=== PATIENT | female | born 1985 | race Two or more races ===

== ENCOUNTER 2024-01-29 21:58 | Emergency (ER) | payer MEDICAID ==
[~2024-01-29] VITALS: Ht 170.2 cm; Wt 72.7 kg
[2024-01-29 22:23] VITALS: TEMP 98.4
[2024-01-29 22:31] VITALS: BP 145/88; PULSE 88; RESP 20
[2024-01-29 22:31] LABS: EOSINOPHILS % (AUTO) 3.1 % (1.0-6.0); HEMATOCRIT 42.2 % (36-46); HEMOGLOBIN 13.9 g/dL (12.0-16.0); LYMPHOCYTES # (AUTO) 3.2 K/uL (1.0-4.8); MEAN CORPUSCULAR HEMOGLOBIN 27.9 pg (26.0-34.0); MEAN CORPUSCULAR HGB CONC 32.9 G/dL (31.0-37.0); MEAN CORPUSCULAR VOLUME 85 fL (80-100); MONOCYTES # (AUTO) 0.7 K/uL (0.1-1.0); MONOCYTES % (AUTO) 7.6 % (2.0-9.0); NEUTROPHILS # (AUTO) 4.6 K/uL (1.8-7.7); NEUTROPHILS % (AUTO) 52.3 % (40.0-70.0); PLATELET COUNT (AUTO) 313 K/uL (150-450); RED BLOOD CELL COUNT(AUTO) 4.98 MIL/uL (4.00-5.20); RED CELL DISTRIBUTION WIDTH 12.5 % (11.5-14.5); WHITE BLOOD COUNT (AUTO) 8.8 K/uL (4.5-11.0)
[2024-01-29 22:38] LABS: AMPHET/METH SCREEN,URINE NEGATIVE (NEGATIVE); BARBITURATE SCREEN, URINE NEGATIVE (NEGATIVE); BENZODIAZEPINES SCREEN,URINE NEGATIVE (NEGATIVE); CANNABINOID SCREEN,URINE NEGATIVE (NEGATIVE); COCAINE SCREEN,URINE NEGATIVE (NEGATIVE); METHADONE SCREEN, URINE NEGATIVE (NEGATIVE); OPIATE SCREEN,URINE NEGATIVE (NEGATIVE); PHENCYCLIDINE SCREEN,URINE NEGATIVE (NEGATIVE)
[2024-01-29 22:39] LABS: ALCOHOL, URINE DRUG SCREEN NEGATIVE (NEGATIVE)
[2024-01-29 22:41] LABS: ANION GAP 7 mmol/L (8-16); CALCIUM, TOTAL 9.2 mg/dL (8.8-10.5); CARBON DIOXIDE 26 mmol/L (22-29); CHLORIDE 103 mmol/L (98-107); CREATININE 0.66 mg/dL (0.60-1.30); GLOMERULAR FILTR. RATE CALC > 60 mL/min (>60); GLUCOSE,RANDOM 107 mg/dL (70-110); POTASSIUM 3.9 mmol/L (3.5-5.1); SODIUM SERUM 136 mmol/L (136-145); UREA NITROGEN, BLOOD 11 mg/dL (7-18)
[2024-01-29 22:46] LABS: ALCOHOL, BLOOD (SERUM) < 3 mg/dL (0-10)
[2024-01-29 23:13] LABS: COVID AG,FIA SOURCE NASAL SWAB
[2024-01-29] MEDS ORDERED: ALPR-709 PO (23:14)
[2024-01-29] MEDS ORDERED: CEPH-558 PO (23:14)
[2024-01-29] MEDS ORDERED: HYDR-4808 PO (23:14)
[2024-01-29] MEDS ORDERED: FLUO-418 PO (23:14)
[2024-01-29 23:31] LABS: SARS-COV2 (COVID) ANTIGEN,FIA Negative (Negative)
== END 2024-01-29 23:20 | disposition home or self-care (01) ==
LOC: EMS 22:00
DX: R45.851 Suicidal ideations (principal); F41.9 Anxiety disorder, unspecified; F15.10 Other stimulant abuse, uncomplicated; Z79.899 Other long term (current) drug therapy; Z20.822 Contact with and (suspected) exposure to COVID-19
CPT/HCPCS: 99283; 87426; 80048; 85025; 36415; 80307; G0480

== ENCOUNTER 2024-05-26 10:23 | Inpatient (IN) | payer MEDICAID, OTHER ==
[~2024-05-26] VITALS: Ht 170.2 cm; Wt 67.6 kg
[2024-05-26 11:24] LABS: COVID AG,FIA SOURCE NPH
[2024-05-26 11:45] LABS: SARS-COV2 (COVID) ANTIGEN,FIA Negative (Negative)
[2024-05-26 11:58] LABS: ANION GAP 4 mmol/L (8-16); CALCIUM, TOTAL 8.6 mg/dL (8.8-10.5); CARBON DIOXIDE 25 mmol/L (22-29); CHLORIDE 105 mmol/L (98-107); CREATININE 0.88 mg/dL (0.60-1.30); EOSINOPHILS % (AUTO) 4.2 % (1.0-6.0); GLOMERULAR FILTR. RATE CALC > 60 mL/min (>60); GLUCOSE,RANDOM 159 mg/dL (70-110); HEMATOCRIT 36.3 % (36-46); HEMOGLOBIN 12.3 g/dL (12.0-16.0); LYMPHOCYTES % (AUTO) 30.1 % (22.0-44.0); MEAN CORPUSCULAR HEMOGLOBIN 28.2 pg (26.0-34.0); MEAN CORPUSCULAR HGB CONC 33.9 G/dL (31.0-37.0); MEAN CORPUSCULAR VOLUME 83 fL (80-100); MONOCYTES # (AUTO) 0.6 K/uL (0.1-1.0); MONOCYTES % (AUTO) 8.3 % (2.0-9.0); NEUTROPHILS # (AUTO) 3.8 K/uL (1.8-7.7); NEUTROPHILS % (AUTO) 56.4 % (40.0-70.0); PLATELET COUNT (AUTO) 331 K/uL (150-450); POTASSIUM 3.3 mmol/L (3.5-5.1); RED BLOOD CELL COUNT(AUTO) 4.36 MIL/uL (4.00-5.20); SODIUM SERUM 134 mmol/L (136-145); UREA NITROGEN, BLOOD 8 mg/dL (7-18); WHITE BLOOD COUNT (AUTO) 6.8 K/uL (4.5-11.0)
[2024-05-26 12:07] LABS: ALCOHOL, BLOOD (SERUM) < 3 mg/dL (0-10)
[2024-05-26] MEDS: POTASSIUM CHLORIDE 20 MEQ ER TABLET PO ONE (12:12)
[2024-05-26 12:20] LABS: HCG,QUANTITATIVE < 1 mIU/mL (0-6); THYROID STIMULATING HORMONE 1.81 uIU/mL (0.36-3.74)
[2024-05-26] MEDS: DOXYCYCLINE HYCLATE 100 MG TABLET PO ONE (13:13)
[2024-05-27 01:30] VITALS: BP 134/84; PULSE 88; RESP 18; TEMP 96.7; O2SAT 100
[2024-05-27 02:10] VITALS: BP 134/84; PULSE 88; RESP 18; TEMP 96.7; O2SAT 100
[2024-05-27] MEDS ORDERED: INFLUENZA VIRUS VACCINE TVS (6MO+) 2024-25/PF 45 MCG/0.5 ML SYRINGE IM. ONE (03:45)
[2024-05-27 08:14] VITALS: BP 120/84; PULSE 92; RESP 17; TEMP 97.1; O2SAT 100
[2024-05-27] MEDS: DOXYCYCLINE HYCLATE 100 MG TABLET PO SCH (08:52)
[2024-05-27] MEDS ORDERED: PETROLATUM,WHITE 28 GM JELLY TP PRN (10:30)
[2024-05-27] MEDS ORDERED: MAG HYDROX/ALUMINUM HYD/SIMETH ES 30 ML SUSPENSION UDCUP PO PRN (10:30)
[2024-05-27] MEDS ORDERED: NICOTINE 14 MG/24 HOUR PATCH TD PRN (10:30)
[2024-05-27] MEDS ORDERED: GuaiFENesin/D-METHORPHAN [SUGAR-FREE] 200-20MG/10 ML SYRUP UDCUP PO PRN (10:30)
[2024-05-27] MEDS ORDERED: ONDANSETRON 4 MG TABLET PO PRN (10:30)
[2024-05-27] MEDS ORDERED: CloNIDine HCL 0.1 MG TABLET PO PRN (10:30)
[2024-05-27] MEDS ORDERED: LOPERAMIDE HCL 2 MG CAPSULE PO PRN (10:30)
[2024-05-27] MEDS ORDERED: ALBUTEROL SULFATE HFA 90 MCG/PUFF 8 GM INHALER IH PRN (10:30)
[2024-05-27] MEDS ORDERED: MAGNESIUM HYDROXIDE SUSPENSION 30 ML UDCUP PO PRN (10:30)
[2024-05-27] MEDS ORDERED: DOCUSATE SODIUM 100 MG CAPSULE PO PRN (10:30)
[2024-05-27] MEDS: LURASIDONE HCL 40 MG TABLET PO SCH (11:13)
[2024-05-27] MEDS: LamoTRIgine 100 MG TABLET PO SCH (11:13)
[2024-05-27] MEDS: ATOMOXETINE HCL 40 MG CAPSULE PO SCH (16:55)
[2024-05-27 20:22] VITALS: BP 118/71; PULSE 83; RESP 16; TEMP 97.5
[2024-05-28 08:22] VITALS: BP 117/74; PULSE 82; RESP 16; TEMP 98; O2SAT 100
[2024-05-28 08:36] VITALS: BP 117/74; PULSE 80; RESP 16; TEMP 98
[2024-05-28 09:22] LABS: HEMOGLOBIN A1C 5.2 % (3.8-5.6)
[2024-05-28 09:27] LABS: CHOL/HDL RATIO 3.4 (3.9-5.7); THYROID STIMULATING HORMONE 0.81 uIU/mL (0.36-3.74)
[2024-05-28 09:30] VITALS: BP 117/74; PULSE 82; RESP 16; TEMP 98; O2SAT 100
[2024-05-28 09:34] LABS: POTASSIUM 3.9 mmol/L (3.5-5.1)
[2024-05-28 16:03] VITALS: BP 117/74; PULSE 82; RESP 17; TEMP 98; O2SAT 99
[2024-05-28 21:10] VITALS: BP 98/60; PULSE 88; RESP 16; TEMP 97.6
[2024-05-28 22:36] VITALS: BP 100/60; PULSE 88; RESP 16; TEMP 97; O2SAT 99
[2024-05-29 08:09] VITALS: BP 98/52; PULSE 83; RESP 18; TEMP 96.8
[2024-05-29 20:27] VITALS: BP 104/43; PULSE 94; RESP 15; TEMP 96.8; O2SAT 97
[2024-05-30 08:17] VITALS: BP 106/61; PULSE 96; RESP 16; TEMP 96.9; O2SAT 97
[2024-05-30 10:03] LABS: APPEARANCE,URINE HAZY (CLEAR); BILIRUBIN,URINE NEGATIVE (NEGATIVE); COLOR,URINE LIGHT YELLOW (YELLOW); GLUCOSE, URINE (UA) NEGATIVE (NEGATIVE); KETONES,URINE NEGATIVE (NEGATIVE); LEUKOCYTE ESTERASE ,URINE MODERATE (NEGATIVE); NITRATE,URINE NEGATIVE (NEGATIVE); OCCULT BLOOD,URINE NEGATIVE (NEGATIVE); PROTEIN,URINE TRACE mg/dL (NEGATIVE); SPECIFIC GRAVITIY, URINE 1.023 (1.003-1.030); UROBILINOGEN,URINE <=1.0 mg/dL (<=1.0)
[2024-05-30 10:10] LABS: ALCOHOL, URINE DRUG SCREEN NEGATIVE (NEGATIVE); AMPHET/METH SCREEN,URINE POSITIVE (NEGATIVE); BARBITURATE SCREEN, URINE NEGATIVE (NEGATIVE); BENZODIAZEPINES SCREEN,URINE NEGATIVE (NEGATIVE); CANNABINOID SCREEN,URINE NEGATIVE (NEGATIVE); COCAINE SCREEN,URINE NEGATIVE (NEGATIVE); METHADONE SCREEN, URINE NEGATIVE (NEGATIVE); OPIATE SCREEN,URINE NEGATIVE (NEGATIVE); PHENCYCLIDINE SCREEN,URINE NEGATIVE (NEGATIVE)
[2024-05-30 10:19] LABS: BACTERIA,URINE Many /HPF (None Seen); RBC,URINE 0-2 /HPF (0-2); SQUAMOUS EPITHELIAL CELL,UR Many /LPF (None Seen)
[2024-05-30] MEDS: LORazepam 2 MG TABLET PO PRN (16:44)
[2024-05-30] MEDS: HALOPERIDOL 5 MG TABLET PO PRN (16:44)
[2024-05-30 20:15] VITALS: BP 102/56; PULSE 88; RESP 16; TEMP 96.3; O2SAT 98
[2024-05-31 08:09] VITALS: BP 109/71; PULSE 84; RESP 16; TEMP 96.9; O2SAT 97
[2024-05-31 11:38] VITALS: RESP 17
[2024-05-31 12:38] VITALS: RESP 16
[2024-05-31 21:13] VITALS: BP 105/68; PULSE 83; RESP 17; TEMP 98.5; O2SAT 99
[2024-06-01 08:27] VITALS: BP 108/59; PULSE 89; RESP 18; TEMP 97.8; O2SAT 98
[2024-06-01 15:45] VITALS: RESP 18
[2024-06-01] MEDS: ACETAMINOPHEN 325 MG TABLET PO PRN (15:45)
[2024-06-01 16:45] VITALS: RESP 17
[2024-06-01 20:14] VITALS: BP 127/73; PULSE 98; RESP 17; TEMP 97.4; O2SAT 97
[2024-06-01] MEDS: ZOLPIDEM TARTRATE 10 MG TABLET PO PRN (22:05)
[2024-06-02 09:02] VITALS: BP 99/62; PULSE 78; RESP 18; TEMP 97.5; O2SAT 97
[2024-06-02 20:25] VITALS: BP 103/70; PULSE 82; RESP 18; TEMP 98.4
[2024-06-02] MEDS: IBUPROFEN 400 MG TABLET PO PRN (20:43)
[2024-06-03 06:10] VITALS: BP 110/73; PULSE 84; RESP 16; O2SAT 99
[2024-06-03 07:06] VITALS: RESP 18
[2024-06-03 08:30] VITALS: BP 107/61; PULSE 87; RESP 19; TEMP 98; O2SAT 98
[2024-06-03 15:04] VITALS: RESP 18; O2SAT 98
[2024-06-03 16:04] VITALS: RESP 18; O2SAT 98
[2024-06-03] MEDS ORDERED: CYCLOBENZAPRINE HCL 10 MG TABLET PO SCH (18:30)
== END 2024-06-03 18:45 | disposition left against medical advice (07) | DRG 750 ==
LOC: EMS 10:23 → B2S 05-27 01:06
PROVIDERS: ADMIT Psychiatry & Neurology Child & Adolescent Psychiatry; ATTEND Psychiatry & Neurology Child & Adolescent Psychiatry
PROC: GZHZZZZ Group Psychotherapy (ICD-10-PCS; principal; 2024-05-28)
PROC: GZ52ZZZ Individual Psychotherapy, Cognitive (ICD-10-PCS; 2024-05-28)
PROC: GZ56ZZZ Individual Psychotherapy, Supportive (ICD-10-PCS; 2024-05-28)
DX: F25.1 Schizoaffective disorder, depressive type (principal); R45.851 Suicidal ideations; E03.9 Hypothyroidism, unspecified; E87.6 Hypokalemia; Z20.822 Contact with and (suspected) exposure to COVID-19; F15.10 Other stimulant abuse, uncomplicated; F11.90 Opioid use, unspecified, uncomplicated; R73.9 Hyperglycemia, unspecified; I10 Essential (primary) hypertension; L02.31 Cutaneous abscess of buttock; Z91.018 Allergy to other foods; Z53.29 Procedure and treatment not carried out because of patient's decision for other reasons
CPT/HCPCS: 80048; 80061; 80307; 81001; 83036; 84132; 84443; 84702; 85025; 87086; 99285; G0480

== ENCOUNTER 2024-05-29 10:36 | Emergency (ER) | payer MEDICAID, OTHER ==
[~2024-05-29] VITALS: Ht 162.6 cm; Wt 51.0 kg
[2024-05-29 10:39] VITALS: BP 102/66; PULSE 101; RESP 18; TEMP 98.4; O2SAT 98
== END 2024-05-29 11:09 ==
LOC: EMS 10:36
DX: L02.31 Cutaneous abscess of buttock (principal); F20.9 Schizophrenia, unspecified
CPT/HCPCS: 99283; Z7502